=== PATIENT | male | born 1975 | race African-American/Black ===

== ENCOUNTER 2020-05-10 00:39 | Emergency (ER) | payer BC, OTHER ==
[2020-05-10] MEDS ORDERED: Sodium Chloride 0.9% 1,000 ML IV ONE ×2 (00:42→00:47)
[2020-05-10] MEDS ORDERED: Sodium Chloride 0.9% 2.5 ML Syringe FLUSH PRN (00:42)
[2020-05-10] MEDS ORDERED: Sodium Chloride 0.9% 10 ML Syringe FLUSH PRN (00:42)
[2020-05-10] MEDS ORDERED: Morphine 4 MG/ML Syringe IVPUSH ONE (00:42)
[2020-05-10] MEDS ORDERED: Ondansetron 4 MG/2 ML SDV IVPUSH ONE (00:42)
[2020-05-10] MEDS ORDERED: Famotidine 20 MG/2 ML SDV IVPUSH ONE (00:42)
--- NOTE | 2020-05-10 01:20 | CR ---
INDICATION: SOB TECHNIQUE: Chest 1 view. COMPARISON: None. FINDINGS: Cardiovascular and mediastinum: Heart size and vasculature are normal in caliber and appearance. Mediastinum is within normal limits. Lungs and pleural space: Lungs are clear. No sign of infiltrate or mass. No sign of pleural effusion. No pneumothorax. Bones and soft tissues: No significant findings. IMPRESSION: Unremarkable chest. Dictated by: Henrry Ramos MD @ 05/10/2020 01:18:20 (Electronically Signed)
[2020-05-10 01:33] LABS: BLOOD UREA NITROGEN,BUN 15 mg/dL (7.0-18.0); CARBON DIOXIDE,CO2 25.8 mmol/L (21.0-32.0); CHLORIDE,CL 103 mmol/L (98-107); GLUCOSE RANDOM 133 mg/dL (74-106); LIPASE 103 U/L (73-393); POTASSIUM,K 3.8 mmol/L (3.5-5.1); SODIUM,NA 140 mmol/L (136-148)
--- NOTE | 2020-05-10 02:09 | EDM.PDOC ---
ED HPI GENERAL MEDICAL PROBLEM - General Chief Complaint: Abdominal Pain Stated Complaint: ABDOMINAL PAIN Time Seen by Provider: 05/10/20 00:42 Source of Information: Reports: Patient History Limitations: Reports: No Limitations - History of Present Illness INITIAL COMMENTS - FREE TEXT/NARRATIVE: Patient is 44 yo male presenting with LLQ abd pain starting about 4-5 hours CHIEF WARDEN. Pain developed out of the blue and has been intermittent over that time. no associated vomiting or diarrhea. patient does endorse intermittent muscle cramps in bilateral legs as well. also has mild shortness of breath, denies chest pain, fever, chills, URI symptoms. Has not taken any meds to relieve symptoms. Denies previous belly surgeries or chronic abdominal problems. abdomen Pain Score (Numeric/FACES): 4 - Related Data Allergies Allergy/AdvReac Type Severity Reaction Status Date / Time No Known Allergies Allergy Verified 05/10/20 01:40 Home Meds: Home Meds Albuterol [Ventolin HFA] 1 - 2 puff INH Q4H PRN 09/08/18 [History] Past Medical History - Past Health History Medical/Surgical History: Denies Medical/Surgical History HEENT History: Reports: None Cardiovascular History: Reports: None Respiratory History: Reports: Asthma Gastrointestinal History: Reports: None Genitourinary History: Reports: None Musculoskeletal History: Reports: None Neurological History: Reports: None Psychiatric History: Reports: None Endocrine/Metabolic History: Reports: None Hematologic History: Reports: None Immunologic History: Reports: None Oncologic (Cancer) History: Reports: None Dermatologic History: Reports: None - Infectious Disease History Infectious Disease History: Reports: None - Past Surgical History Head Surgeries/Procedures: Reports: None Respiratory Surgical History: Reports: None Musculoskeletal Surgical History: Reports: Other (See Below) Other Musculoskeletal Surgeries/Procedures:: Foot & knee Social & Family History - Family History Family Medical History: Noncontributory - Tobacco Use Smoking Status *Q: Current Every Day Smoker Years of Tobacco use: 10 Packs/Tins Daily: 0 - Caffeine Use Caffeine Use: Reports: None - Recreational Drug Use Recreational Drug Use: No ED ROS GENERAL - Review of Systems Review Of Systems: Comprehensive ROS is negative, except as noted in HPI. ED EXAM, GI/ABD - Physical Exam Exam: See Below Exam Limited By: No Limitations General Appearance: Alert, No Apparent Distress Eyes: Bilateral: Normal Appearance Ears: Normal External Exam, Hearing Grossly Normal Throat/Mouth: Normal Inspection, Normal Lips, Normal Voice, No Airway Compromise Head: Atraumatic, Normocephalic Neck: Normal Inspection, Supple Respiratory/Chest: No Respiratory Distress, Lungs Clear, Normal Breath Sounds, No Accessory Muscle Use, Chest Non-Tender Cardiovascular: Normal Peripheral Pulses, No Edema, No JVD, No Murmur, No Rub, Tachycardia GI/Abdominal Exam: Normal Bowel Sounds, Soft, Non-Tender, No Organomegaly, No Distention, No Abnormal Bruit, No Mass (Male) Exam: Deferred Rectal (Males) Exam: Deferred Back Exam: Normal Inspection, Full Range of Motion Extremities: Normal Inspection, Normal Range of Motion, Non-Tender Neurological: Alert, Oriented, No Motor/Sensory Deficits Psychiatric: Normal Affect, Normal Mood Skin Exam: Warm, Dry EKG INTERPRETATION EKG Date: 05/10/20 Time: 01:21 Rhythm: NSR Rate (Beats/Min): 110 Burke: Normal P-Wave: Present QRS: Normal ST-T: Normal QT: Normal EKG Interpretation Comments: sinus tach Course - Vital Signs Text/Narrative:: On reevaluation patient is feeling better. His tachycardia has significantly improved. Heart rate is about 100. Belly exam remains benign. No rebound or guarding. CT scan is negative, no evidence for surgical emergency, infection, or other abnormality. Lab work is reassuring, patient is feeling better overall. I believe he is appropriate for outpatient management and follow-up. He has no urinary symptoms, no dysuria or hematuria, no testicular pain, I provided him with return precautions including uncontrollable nausea vomiting, severe worsening pain, persistent high fever, etc. Patient is agreeable with this plan and stable at discharge. Last Recorded V/S: Last Vital Signs Temp 36.5 C 05/10/20 02:23 Pulse 102 H 05/10/20 02:23 Resp 16 05/10/20 02:23 BP 107/64 05/10/20 02:23 Pulse Ox 95 05/10/20 02:23 - Orders/Labs/Meds Orders: Active Orders 24 hr Category Date Time Status EKG 12 Lead [EKG Documentation Completion] [RC] STAT Care 05/10/20 00:44 Active Saline Lock Insert [OM.PC] Stat Oth 05/10/20 00:43 Ordered Labs: Laboratory Tests 05/10/20 05/10/20 05/10/20 Range/Units 01:00 01:00 01:00 WBC 7.05 (4.0-11.0) K/uL RBC 4.90 (4.50-5.90) M/uL Hgb 15.4 (13.0-17.0) g/dL Hct 42.8 (38.0-50.0) % MCV 87.3 (80.0-98.0) fL MCH 31.4 (27.0-32.0) pg MCHC 36.0 (31.0-37.0) g/dL RDW Std Deviation 38.9 (28.0-62.0) fl RDW Coeff of Rick 12 (11.0-15.0) % Plt Count 145 L (150-400) K/uL MPV 10.60 (7.40-12.00) fL Neut % (Auto) 52.5 (48.0-80.0) % Lymph % (Auto) 36.9 (16.0-40.0) % Hart % (Auto) 7.2 (0.0-15.0) % Eos % (Auto) 3.1 (0.0-7.0) % Baso % (Auto) 0.3 (0.0-1.5) % Neut # (Auto) 3.7 (1.4-5.7) K/uL Lymph # (Auto) 2.6 H (0.6-2.4) K/uL Hart # (Auto) 0.5 (0.0-0.8) K/uL Eos # (Auto) 0.2 (0.0-0.7) K/uL Baso # (Auto) 0.0 (0.0-0.1) K/uL D-Dimer, Quantitative < 0.19 (0.0-0.50) mg/L FEU Sodium 140 (136-148) mmol/L Potassium 3.8 (3.5-5.1) mmol/L Chloride 103 (98-107) mmol/L Carbon Dioxide 25.8 (21.0-32.0) mmol/L BUN 15 (7.0-18.0) mg/dL Creatinine 1.1 (0.8-1.3) mg/dL Est Cr Clr Drug Dosing TNP Estimated GFR (MDRD) > 60.0 ml/min Glucose 133 H (74-106) mg/dL Calcium 8.7 (8.5-10.1) mg/dL Total Bilirubin 0.4 (0.2-1.0) mg/dL AST 28 (15-37) IU/L ALT 30 (14-63) IU/L Alkaline Phosphatase 66 (46-116) U/L Troponin I < 0.050 (0.000-0.056) ng/mL Total Protein 7.0 (6.4-8.2) g/dL Albumin 4.1 (3.4-5.0) g/dL Globulin 2.9 (2.6-4.0) g/dL Albumin/Globulin Ratio 1.4 (0.9-1.6) Lipase 103 (73-393) U/L Meds: Medications Discontinued Medications Generic Name Dose Route Start Last Admin Trade Name Freq PRN Reason Stop Dose Admin Famotidine 20 mg 05/10/20 00:42 05/10/20 01:13 Pepcid IVPUSH 05/10/20 00:43 20 mg ONETIME ONE Administration Sodium Chloride 1,000 mls @ 999 mls/hr 05/10/20 00:42 05/10/20 01:11 Normal Saline IV 05/10/20 01:42 999 mls/hr .Bolus ONE Administration Sodium Chloride 1,000 mls @ 1,000 mls/hr 05/10/20 00:47 05/10/20 02:28 Normal Saline IV 05/10/20 01:46 1,000 mls/hr .Bolus ONE Administration Morphine Sulfate 4 mg 05/10/20 00:42 Morphine IVPUSH 05/10/20 00:43 ONETIME ONE Ondansetron HCl 4 mg 05/10/20 00:42 05/10/20 01:15 Zofran IVPUSH 05/10/20 00:43 4 mg ONETIME ONE Administration Sodium Chloride 10 ml 05/10/20 00:42 05/10/20 01:16 Saline Flush FLUSH 10 ml ASDIRECTED PRN Administration Keep Vein Open Sodium Chloride 2.5 ml 05/10/20 00:42 05/10/20 01:16 Saline Flush FLUSH 2.5 ml ASDIRECTED PRN Administration Keep Vein Open Departure - Departure Time of Disposition: 03:02 Disposition: Home, Self-Care 01 Condition: Good Clinical Impression: LLQ abdominal pain - Discharge Information *PRESCRIPTION DRUG MONITORING PROGRAM REVIEWED*: Not Applicable *COPY OF PRESCRIPTION DRUG MONITORING REPORT IN PATIENT AILYN: Not Applicable Instructions: Abdominal Pain, Adult Referrals: PCP,None [Primary Care Provider] - Forms: ED Department Discharge Additional Instructions: Follow-up with primary care doctor. Return to the ER with any new or worsening symptoms. The following information is given to patients seen in the emergency department who are being discharged to home. This information is to outline your options for follow-up care. We provide all patients seen in our emergency department with a follow-up referral. The need for follow-up, as well as the timing and circumstances, are variable depending upon the specifics of your emergency department visit. If you don't have a primary care physician on staff, we will provide you with a referral. We always advise you to contact your personal physician following an emergency department visit to inform them of the circumstance of the visit and for follow-up with them and/or the need for any referrals to a consulting specialist. The emergency department will also refer you to a specialist when appropriate. This referral assures that you have the opportunity for follow-up care with a specialist. All of these measure are taken in an effort to provide you with optimal care, which includes your follow-up. Under all circumstances we always encourage you to contact your private physician who remains a resource for coordinating your care. When calling for follow-up care, please make the office aware that this follow-up is from your recent emergency room visit. If for any reason you are refused follow-up, please contact the [facility] Emergency Department at and asked to speak to the emergency department charge nurse. Sepsis Event Note (ED) - Evaluation Sepsis Screening Result: No Definite Risk - Focused Exam Vital Signs: Vital Signs Temp Pulse Resp BP Pulse Ox 05/10/20 02:23 36.5 C 102 H 16 107/64 95 05/10/20 00:42 36.3 C 119 H 18 149/87 H 96 - My Orders Last 24 Hours: My Active Orders 05/10/20 00:43 Saline Lock Insert [OM.PC] Stat 05/10/20 00:44 EKG 12 Lead [EKG Documentation Completion] [RC] STAT - Assessment/Plan Last 24 Hours: My Active Orders 05/10/20 00:43 Saline Lock Insert [OM.PC] Stat 05/10/20 00:44 EKG 12 Lead [EKG Documentation Completion] [RC] STAT
--- NOTE | 2020-05-10 02:44 | CT ---
INDICATION: Left lower quadrant pain. COMPARISON: None available TECHNIQUE: CT examination of the abdomen and pelvis was performed with the uneventful intravenous administration of 100 cc of Isovue 370 while 3 mm thick axial sections were obtained from the lung bases through the pubic symphysis. Oral contrast was not administered. Please note that all CT scans at this facility use dose modulation, iterative reconstruction, and/or weight-based dosing when appropriate to reduce radiation dose to as low as reasonably achievable. FINDINGS: In the abdomen, the liver, spleen, pancreas, and adrenals are normal in appearance. The kidneys are normal in appearance. The gallbladder is normal in appearance. The abdominal aorta is normal in caliber with no sign of dilatation. There is no sign of retroperitoneal mass or adenopathy. The stomach, loops of small bowel, and colon in the abdomen are normal in appearance. In the pelvis, the appendix is normal in appearance with no sign of inflammatory process. The loops of small bowel and colon in the pelvis are normal in appearance. The prostate is normal in appearance. The urinary bladder is normal in appearance. There is no sign of pelvic or inguinal mass or adenopathy. There is no sign of free air or free fluid in the abdomen or pelvis. The lung bases are clear. The osseous structures are normal in appearance for the patient`s age. IMPRESSION: Nothing seen to explain the patient`s left lower quadrant pain. No sign of diverticulosis or diverticulitis. Normal appearance of the left urinary system. Normal CT of the abdomen with contrast. Normal CT of the pelvis with contrast. Please note that all CT scans at this facility use dose modulation, iterative reconstruction, and/or weight-based dosing when appropriate to reduce radiation dose to as low as reasonably achievable. Dictated by Hamilton Hendrickson MD @ May 10 2020 2:37AM Signed by Dr. Hamilton Hendrickson @ May 10 2020 2:43AM
[2020-05-10] MEDS ORDERED: Iopamidol 755 MG/ML 500 ML Multipack Bottle IVPUSH STA (05:20)
== END 2020-05-10 03:21 | disposition home or self-care (01) ==
LOC: MW.ED 00:39
DX: R10.32 Left lower quadrant pain (principal); J45.909 Unspecified asthma, uncomplicated; F17.210 Nicotine dependence, cigarettes, uncomplicated
CPT/HCPCS: 36415; 71045; 74177; 80053; 83690; 84484; 85025; 85379; 93005; 96361; 96374; 96375; 99285; J2405; J7030; Q9967; S0028; 99283; J3490

== ENCOUNTER 2021-06-24 07:36 | Day surgery (SDC) | payer OTHER ==
[~2021-06-24 07:36] MED LIST: Lactated Ringers 1,000 ML IV SCH; Lidocaine 2% 5 ML SDV ONE; Metoclopramide 10 MG/2 ML SDV ONE; Midazolam 1 MG/ML 2 ML SDV ONE; Ondansetron 4 MG/2 ML SDV ONE; Sodium Chloride 0.9% 20 ML ONE; fentaNYL 100 MCG/2 ML SDV ONE; propofoL 100 ML ONE
[2021-06-24] MEDS ORDERED: Ondansetron 4 MG/2 ML SDV IVPUSH PRN (08:17)
[2021-06-24] MEDS ORDERED: fentaNYL 100 MCG/2 ML SDV IVPUSH PRN (08:17)
[2021-06-24] MEDS ORDERED: Morphine 2 MG/ML SYRINGE IVPUSH PRN (08:17)
[2021-06-24] MEDS ORDERED: Naloxone 0.4 MG/ML Syringe IVPUSH PRN (08:17)
[2021-06-24] MEDS ORDERED: HYDROmorphone 2 MG/ML Syringe IVPUSH PRN (08:17)
[2021-06-24] MEDS ORDERED: Metoclopramide 10 MG/2 ML SDV IVPUSH PRN (08:17)
[2021-06-24] MEDS ORDERED: Albuterol 0.083% 2.5 MG/3 ML Neb Soln NEB PRN (08:17)
--- NOTE | 2021-06-24 08:19 | PCM.PREANE ---
Preanesthetic Assessment - Anesthesia/Transfusion/Family Hx Anesthesia History: Prior Anesthesia Without Reaction Transfusion History: No Prior Transfusion(s) - Review of Systems General: No Symptoms Pulmonary: Wheezing Cardiovascular: No Symptoms Gastrointestinal: No Symptoms Neurological: No Symptoms Other: Reports: None - Physical Assessment NPO Status Date: 06/24/21 NPO Status Time: 00:00 Vital Signs: Last Vital Signs Temp 97.0 F 06/24/21 07:43 Pulse 84 06/24/21 07:43 Resp 15 06/24/21 07:43 BP 126/84 06/24/21 07:43 Pulse Ox 98 06/24/21 07:43 Height: 5 ft 9 in Weight: 185 lb ASA Class: 2 Mental Status: Alert & Oriented x3 Airway Class: Mallampati = 2 Dentition: Reports: Normal Dentition Thyro-Mental Finger Breadths: 3 Mouth Opening Finger Breadths: 3 ROM/Head Extension: Full Lungs: Clear to Auscultation, Normal Respiratory Effort Cardiovascular: Regular Rate, Regular Rhythm - Allergies Allergies/Adverse Reactions: Allergies Allergy/AdvReac Type Severity Reaction Status Date / Time pollen extracts Allergy "itchy Verified 06/18/21 11:18 water eyes" - Acknowledgements Anesthesia Type Planned: General Anesthesia Pt an Appropriate Candidate for the Planned Anesthesia: Yes Alternatives and Risks of Anesthesia Discussed w Pt/Guardian: Yes Pt/Guardian Understands and Agrees with Anesthesia Plan: Yes PreAnesthesia Questionnaire - Past Health History Medical/Surgical History: Denies Medical/Surgical History HEENT History: Reports: Allergic Rhinitis Cardiovascular History: Reports: None Respiratory History: Reports: Asthma Other Respiratory History: "seasonal asthma" Gastrointestinal History: Reports: None Genitourinary History: Reports: None Musculoskeletal History: Reports: None Neurological History: Reports: None Psychiatric History: Reports: None Endocrine/Metabolic History: Reports: None Hematologic History: Reports: None Immunologic History: Reports: None Oncologic (Cancer) History: Reports: None Dermatologic History: Reports: None - Infectious Disease History Infectious Disease History: Reports: None - Past Surgical History Head Surgeries/Procedures: Reports: None HEENT Surgical History: Reports: Myringotomy w Tube(s) Cardiovascular Surgical History: Reports: None Respiratory Surgical History: Reports: None GI Surgical History: Reports: None Male Surgical History: Reports: None Endocrine Surgical History: Reports: None Neurological Surgical History: Reports: None Musculoskeletal Surgical History: Reports: Arthroscopic Knee, Other (See Below) Other Musculoskeletal Surgeries/Procedures:: tendon repair left Foot & knee arthroscopy-left Oncologic Surgical History: Reports: None Dermatological Surgical History: Reports: None - SUBSTANCE USE Tobacco Use Status *Q: Former Tobacco User Tobacco Use Within Last Twelve Months: No - HOME MEDS Home Medications: Home Meds Albuterol [Ventolin HFA] 1 - 2 puff INH Q4H PRN 09/08/18 [History] Budesonide [Pulmicort Flexhaler] 1 puff INH BID PRN 06/18/21 [History] Wilma [Wilma Root] 1 dose PO ASDIRECTED 06/18/21 [History] Turmeric/Turmeric Root Extract [Turmeric 500 mg Capsule] 1 - 2 caplet PO ASDIRECTED 06/18/21 [History] - CURRENT (IN HOUSE) MEDS Current Meds: Current Medications Lactated Ringer's (Ringers, Lactated) 1,000 mls @ 125 mls/hr IV ASDIRECTED ABIDA Last Admin: 06/24/21 08:00 Dose: 125 mls/hr Documented by: Discontinued Medications Fentanyl (Fentanyl 100 Mcg/2 Ml Sdv) Confirm Administered Dose 100 mcg .ROUTE .STK-MED ONE Stop: 06/24/21 07:04 Propofol (Diprivan 100 Ml) Confirm Administered Dose 100 mls @ as directed .ROUTE .STK-MED ONE Stop: 06/24/21 07:04 Sodium Chloride (Normal Saline) Confirm Administered Dose 20 mls @ as directed .ROUTE .STK-MED ONE Stop: 06/24/21 07:06 Lidocaine (Lidocaine 2% 5 Ml Sdv) Confirm Administered Dose 5 ml .ROUTE .STK-MED ONE Stop: 06/24/21 07:03 Metoclopramide HCl (Metoclopramide 10 Mg/2 Ml Sdv) Confirm Administered Dose 10 mg .ROUTE .STK-MED ONE Stop: 06/24/21 07:03 Midazolam HCl (Midazolam 1 Mg/Ml 2 Ml Sdv) Confirm Administered Dose 2 mg .ROUTE .STK-MED ONE Stop: 06/24/21 07:03 Ondansetron HCl (Ondansetron 4 Mg/2 Ml Sdv) Confirm Administered Dose 4 mg .ROUTE .STK-MED ONE Stop: 06/24/21 07:03
[2021-06-24] MEDS ORDERED: Bupivacaine 0.5% 30 ML SDV ONE (08:52)
--- NOTE | 2021-06-24 10:21 | PCM.POSTAN ---
POST ANESTHESIA ASSESSMENT - MENTAL STATUS Mental Status: Alert, Oriented - VITAL SIGNS Vital Signs: Last Vital Signs Temp 97.0 F 06/24/21 07:43 Pulse 84 06/24/21 07:43 Resp 15 06/24/21 07:43 BP 126/84 06/24/21 07:43 Pulse Ox 98 06/24/21 07:43 - RESPIRATORY Respiratory Status: Respiratory Rate WNL, Airway Patent, O2 Saturation Stable - CARDIOVASCULAR CV Status: Pulse Rate WNL, Blood Pressure Stable - GASTROINTESTINAL GI Status: No Symptoms - POST OP HYDRATION Hydration Status: Adequate & Stable
--- NOTE | 2021-06-24 10:22 | PCM48HPAN ---
Post Anesthesia Note - EVALUATION WITHIN 48HRS OF ANESTHETIC Vital Signs in Normal Range: Yes Patient Participated in Evaluation: Yes Respiratory Function Stable: Yes Airway Patent: Yes Cardiovascular Function Stable: Yes Hydration Status Stable: Yes Pain Control Satisfactory: Yes Nausea and Vomiting Control Satisfactory: Yes Mental Status Recovered: Yes Vital Signs: Last Vital Signs Temp 97.0 F 06/24/21 07:43 Pulse 84 06/24/21 07:43 Resp 15 06/24/21 07:43 BP 126/84 06/24/21 07:43 Pulse Ox 98 06/24/21 07:43
--- NOTE | 2021-06-24 10:25 | PCM.OPNOTE ---
- General Post-Op/Procedure Note Date of Surgery/Procedure: 06/24/21 Operative Procedure(s): Removal of foreign body left arm. Pre Op Diagnosis: Foreign body, left arm Post-Op Diagnosis: Same Anesthesia Technique: General LMA (ASA II) Primary Surgeon: Carlos Montgomery Fluid Replacement, Intraop: 1,000 EBL in mLs: 5 Condition: Good Free Text/Narrative:: DICTATION [id number] CPT CODE 11687
[2021-06-24] MEDS ORDERED: Lactated Ringers 1,000 ML IV SCH (10:30)
--- NOTE | 2021-06-24 15:52 | OR ---
SURGEON: Carlos Montgomery M.D. DATE OF PROCEDURE: 06/24/2021 OPERATION PERFORMED: Removal of foreign body, left arm. PRIMARY SURGEON: Carlos Montgomery M.D. ANESTHESIA: General LMA. ASA CLASSIFICATION: II. PREOPERATIVE DIAGNOSIS: Foreign body, left upper arm. POSTOPERATIVE DIAGNOSIS: Foreign body, left upper arm. ESTIMATED BLOOD LOSS: 5 mL. INTRAOPERATIVE FLUID REPLACEMENT: 1000 mL. DESCRIPTION OF PROCEDURE: The patient was taken to the operating room and placed on the operating table in the supine position. Time-out was called for appropriate identification of the patient and procedure. General anesthesia with LMA was induced. Prior to the patient entering the operating room, the surgical site had been marked. The left arm was then prepped with ChloraPrep solution and sterile drapes were applied. The skin incision had previously been marked out directly over the metallic foreign body which was confirmed. The incision was then infiltrated with 10 mL of 0.5% Marcaine solution. Skin incision was made and deepened through the subcutaneous tissue using electrocautery for hemostasis. Dissection was carried down to the foreign body which was in the subcutaneous space. Again using electrocautery, this was circumferentially dissected. This was a 1 x 1 cm foreign body. Wound was inspected for hemostasis and small bleeding sites were electrocoagulated. With that accomplished, the wound was irrigated with sterile saline solution. The incision was closed in two layers approximating the subcutaneous tissue with 3-0 Vicryl and the skin with subcuticular 4-0 Monocryl. The incision was then Steri-Stripped and dressed with a sterile Tegaderm pad. Sponge, needle, and instrument counts were all correct. Following emergence from anesthesia and extubation, the patient was taken to recovery room in satisfactory condition. BENNIE / DELORES /[id number]
== END 2021-06-24 11:15 | disposition home or self-care (01) ==
LOC: MW.SDS 07:36
PROVIDERS: ATTEND Surgery
DX: S40.852A Superficial foreign body of left upper arm, initial encounter (principal); Z18.10 Retained metal fragments, unspecified; J45.40 Moderate persistent asthma, uncomplicated; F17.210 Nicotine dependence, cigarettes, uncomplicated; Z79.899 Other long term (current) drug therapy; Z98.890 Other specified postprocedural states
CPT/HCPCS: 24200; J2250; J2704; J3490; J7120; 00400; 88300; J2405; J2765; J3010

== ENCOUNTER 2022-12-03 11:06 | Day surgery (SDC) | payer OTHER ==
[~2022-12-03 11:06] MED LIST changes: +Acetaminophen 1,000 MG in Premix Bag 1 BAG IV SCH; -Lidocaine 2% 5 ML SDV ONE; -Metoclopramide 10 MG/2 ML SDV ONE; -Midazolam 1 MG/ML 2 ML SDV ONE; -Ondansetron 4 MG/2 ML SDV ONE; +Pregabalin 75 MG Cap PO SCH; -Sodium Chloride 0.9% 20 ML ONE; +cefOXitin 2 GM in Premix Bag 1 BAG IV SCH; -fentaNYL 100 MCG/2 ML SDV ONE; -propofoL 100 ML ONE
[2022-12-03] MEDS ORDERED: Albuterol 0.083% 2.5 MG/3 ML Neb Soln NEB PRN (11:48)
[2022-12-03] MEDS ORDERED: fentaNYL 50 MCG/ML SDV IVPUSH PRN (11:48)
[2022-12-03] MEDS ORDERED: Morphine 2 MG/ML SYRINGE IVPUSH PRN (11:48)
[2022-12-03] MEDS ORDERED: Ondansetron 4 MG/2 ML SDV IVPUSH PRN (11:48)
[2022-12-03] MEDS ORDERED: Metoclopramide 10 MG/2 ML SDV IVPUSH PRN (11:48)
[2022-12-03] MEDS ORDERED: HYDROmorphone 1 MG/ML Syringe IVPUSH PRN (11:48)
[2022-12-03] MEDS ORDERED: Naloxone 0.4 MG/ML SDV IVPUSH PRN (11:48)
[2022-12-03] MEDS ORDERED: Lidocaine 2% 11 ML Jelly Filled Syringe ONE (12:56)
[2022-12-03] MEDS ORDERED: Bupivacaine 0.25%/EPINEPHrine 1:200,000 10 ML SDV ONE (12:56)
[2022-12-03] MEDS ORDERED: fentaNYL 100 MCG/2 ML SDV ONE (13:15)
[2022-12-03] MEDS ORDERED: Midazolam 1 MG/ML 2 ML SDV ONE ×2 (13:15→13:36)
[2022-12-03] MEDS ORDERED: cefOXitin 1 GM Vial ONE (13:46)
[2022-12-03] MEDS ORDERED: Famotidine 20 MG/2 ML SDV ONE (15:28)
[2022-12-03] MEDS ORDERED: Famotidine 20 MG/2 ML SDV IVPUSH ONE (15:35)
== END 2022-12-03 16:12 | disposition home or self-care (01) ==
LOC: MW.SDS 11:06
PROVIDERS: ATTEND Surgery
DX: K64.8 Other hemorrhoids (principal); K64.4 Residual hemorrhoidal skin tags; J30.9 Allergic rhinitis, unspecified; J45.40 Moderate persistent asthma, uncomplicated; Z79.899 Other long term (current) drug therapy; Z98.890 Other specified postprocedural states; Z91.048 Other nonmedicinal substance allergy status; Z87.891 Personal history of nicotine dependence
CPT/HCPCS: 46255; A9270; J0694; J2250; J3010; J3490; J7120

== ENCOUNTER 2023-04-03 08:24 | Day surgery (SDC) | payer OTHER ==
[~2023-04-03 08:24] MED LIST changes: -Acetaminophen 1,000 MG in Premix Bag 1 BAG IV SCH; -Pregabalin 75 MG Cap PO SCH; +Propofol 200 MG/20 ML SDV ONE; -cefOXitin 2 GM in Premix Bag 1 BAG IV SCH
[2023-04-03] MEDS ORDERED: Propofol 200 MG/20 ML SDV ONE (09:30)
[2023-04-03] MEDS ORDERED: Ondansetron 4 MG/2 ML SDV ONE (09:41)
[2023-04-03] MEDS ORDERED: Magnesium Sulfate (4.06 MEQ/ML) 5 GM/10 ML SDV ONE (09:41)
[2023-04-03] MEDS ORDERED: Ketamine 500 mg/10 ML MDV ONE (10:13)
== END 2023-04-03 11:19 | disposition home or self-care (01) ==
LOC: MW.SDS 08:24
PROVIDERS: ATTEND Surgery
DX: Z12.11 Encounter for screening for malignant neoplasm of colon (principal); J30.9 Allergic rhinitis, unspecified; R03.0 Elevated blood-pressure reading, without diagnosis of hypertension; J45.40 Moderate persistent asthma, uncomplicated; M19.019 Primary osteoarthritis, unspecified shoulder; Z87.19 Personal history of other diseases of the digestive system; E55.9 Vitamin D deficiency, unspecified; F17.290 Nicotine dependence, other tobacco product, uncomplicated; E66.9 Obesity, unspecified; Z98.890 Other specified postprocedural states; Z91.048 Other nonmedicinal substance allergy status; Z79.899 Other long term (current) drug therapy; Z68.31 Body mass index [BMI] 31.0-31.9, adult
CPT/HCPCS: 45378; J2405; J2704; J3475; J3490; J7120; 00812

== ENCOUNTER 2024-02-29 20:25 | Emergency (ER) | payer SELFPAY ==
[2024-02-29 20:57] LABS: BASOPHILS ABSOLUTE AUTO 0.04 K/uL (0.00-0.20); BASOPHILS PERCENT AUTO 0.6 % (0.0-1.0); EOSINOPHILS ABSOLUTE AUTO 0.16 K/uL (0.00-0.45); EOSINOPHILS PERCENT AUTO 2.5 % (0.0-6.0); HEMATOCRIT 41.4 % (42.0-52.0); HEMOGLOBIN 14.5 g/dL (14.0-18.0); IMMATURE GRAN ABSOLUTE AUTO 0.02 K/uL (0.00-0.05); IMMATURE GRAN PERCENT AUTO 0.3 % (0.0-0.4); LYMPHOCYTES ABSOLUTE AUTO 3.33 K/uL (1.00-4.80); LYMPHOCYTES PERCENT AUTO 51.2 % (24.0-44.0); MEAN CORPUSCULAR HEMOGLOBIN 29.8 pg (28.0-32.0); MEAN CORPUSCULAR VOLUME 85.2 fL (83.0-99.0); MEAN PLATELET VOLUME 10.3 fL (9.4-12.4); MONOCYTES ABSOLUTE AUTO 0.46 K/uL (0.00-0.80); MONOCYTES PERCENT AUTO 7.1 % (0.0-8.0); NEUTROPHILS PERCENT AUTO 38.3 % (41.0-71.0); PLATELET COUNT,PLT 166 K/uL (150-400); RED BLOOD CELL COUNT 4.86 M/uL (4.52-5.90); WHITE BLOOD CELL COUNT,WBC 6.51 K/uL (3.9-11.3)
[2024-02-29 21:19] LABS: D-DIMER QUANTITATIVE 0.24 mg/L FEU (0.00-0.50); INR 1.02 (0.86-1.11); PTT,PARTIAL THROMBOPLSTIN TIME 28.7 SEC (23.9-30.7)
[2024-02-29 21:27] LABS: A/G RATIO 1.2 (0.9-1.6); ALBUMIN 3.8 g/dL (3.4-5.0); BILIRUBIN TOTAL 0.4 mg/dL (0.2-1.0); CALCIUM 8.8 mg/dL (8.5-10.1); CARBON DIOXIDE,CO2 29.7 mmol/L (21.0-32.0); EST CRCL DRUG DOSING (CG) 88.38 mL/min; POTASSIUM,K 3.6 mmol/L (3.5-5.1); PROTEIN TOTAL,TP 6.9 g/dL (6.4-8.2); TSH ULTRASENSITIVE 2.22 uIU/mL (0.36-3.74)
== END 2024-02-29 22:01 | disposition home or self-care (01) ==
LOC: MW.ED 20:25
DX: R00.2 Palpitations (principal); J45.909 Unspecified asthma, uncomplicated; E66.9 Obesity, unspecified; Z91.048 Other nonmedicinal substance allergy status; Z79.51 Long term (current) use of inhaled steroids; Z79.899 Other long term (current) drug therapy; Z86.19 Personal history of other infectious and parasitic diseases; Z75.8 Other problems related to medical facilities and other health care; Z68.30 Body mass index [BMI] 30.0-30.9, adult
CPT/HCPCS: 36415; 71045; 71045-26; 80053; 83735; 84443; 85025; 85379; 85610; 85730; 93010; 99282; 99285

== ENCOUNTER 2025-07-24 00:55 | Emergency (ER) | payer BC ==
[2025-07-24] MEDS: Albuterol 0.083% 2.5 MG/3 ML Neb Soln NEB ONE (02:32)
== END 2025-07-24 03:33 | disposition home or self-care (01) ==
LOC: MW.ED 00:55
DX: J45.909 Unspecified asthma, uncomplicated (principal); E66.9 Obesity, unspecified; Z79.899 Other long term (current) drug therapy; Z79.51 Long term (current) use of inhaled steroids; Z88.8 Allergy status to other drugs, medicaments and biological substances
CPT/HCPCS: 71045; 99285; A9270; J7613; J7620; 99283